=== PATIENT | male | born 1995 | race Caucasian/White ===

== ENCOUNTER 2020-09-20 13:59 | Emergency (ER) | payer OTHER, SELFPAY ==
[2020-09-20] MEDS ORDERED: Lidocaine 1% (PF) 30 ML VIAL ONE (14:16)
[2020-09-20] MEDS ORDERED: Boostrix 0.5 ML (Tdap) VIAL ONE ×2 (14:30→14:38)
[2020-09-20] MEDS ORDERED: Bacitracin 1 PK ONE (14:37)
== END 2020-09-20 14:46 | disposition home or self-care (01) ==
LOC: NAV ERS 13:59
DX: S61.215A Laceration without foreign body of left ring finger without damage to nail, initial encounter (principal); F17.210 Nicotine dependence, cigarettes, uncomplicated; W26.0XXA Contact with knife, initial encounter
CPT/HCPCS: 12001; 90471; 90715; J2001

== ENCOUNTER 2021-09-09 14:16 | Emergency (ER) | payer OTHER ==
[2021-09-09] MEDS ORDERED: Ibuprofen 800 MG TAB ONE (15:38)
== END 2021-09-09 15:50 | disposition home or self-care (01) ==
LOC: NAV ERS 14:16
DX: S83.91XA Sprain of unspecified site of right knee, initial encounter (principal); S93.401A Sprain of unspecified ligament of right ankle, initial encounter; X50.1XXA Overexertion from prolonged static or awkward postures, initial encounter; F17.210 Nicotine dependence, cigarettes, uncomplicated

== ENCOUNTER 2021-11-04 13:31 | Emergency (ER) | payer OTHER, SELFPAY ==
[2021-11-05 17:49] LABS: SARS-CoV-2 PCR by NAA Not Detected (NotDetected)
== END 2021-11-04 14:28 | disposition home or self-care (01) ==
LOC: NAV ERS 13:31
DX: J06.9 Acute upper respiratory infection, unspecified (principal); Z20.822 Contact with and (suspected) exposure to COVID-19; F17.210 Nicotine dependence, cigarettes, uncomplicated
CPT/HCPCS: 99283; U0003; U0005